=== PATIENT | female | born 2005 | race African-American/Black ===

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

== ENCOUNTER 2023-11-05 16:14 | Emergency (ER) | payer OTHER, SELFPAY ==
[2023-11-05 16:45] LABS: Pregnancy Test - Urine (BHCG) Negative (Negative); Pregu Control Background? CLEAR/WHITE (CLR/WHITE); Pregu Control Bar Appear? YES (CONTROL BAR)
[2023-11-05 16:46] LABS: Bilirubin Negative (Negative); Blood, Urine Trace (Negative); Clarity Hazy (Clear); Glucose, Urine (Dipstick) 100 mg/dL (Negative); Ketone, Urine > or equal to 80 mg/dL (Negative); Leukocyte Small (Negative); Nitrite Positive (Negative); Protein, Urine (Dipstick) Trace mg/dL (Neg-Trace)
[2023-11-05 16:51] LABS: Bacteria/HPF Rare-Few HPF (None Seen); CAUTI Indications for Culture Dysuria,urgency,freq; Mucous/LPF 1+ LPF (<2+); WBC/HPF 21-50 HPF (0-3)
[2023-11-05 16:52] LABS: Urine Culture Reflex Yes Yes
[2023-11-05] MEDS ORDERED: Lidocaine 1% PF 5 ML VIAL ONE (17:22)
[2023-11-05] MEDS ORDERED: cefTRIAXone (ROCEPHIN) 500 MG VIAL ONE (17:22)
== END 2023-11-05 17:45 | disposition home or self-care (01) ==
LOC: MADERS 16:14
DX: N39.0 Urinary tract infection, site not specified (principal)
CPT/HCPCS: 81001; 81025; 87086; 96372; 99284; J0696